=== PATIENT | female | born 1950 | race Caucasian/White ===

== ENCOUNTER 2019-12-10 10:36 | Emergency (ER) | payer OTHER, MEDICAID ==
[2019-12-10 10:49] VITALS: TEMP 98.1
--- NOTE | 2019-12-10 11:45 | RAD ---
EXAM DESCRIPTION: Scapula,Right CLINICAL HISTORY: fall with pain COMPARISON: None. TECHNIQUE: 2 views right FINDINGS: A comminuted fracture of the surgical neck of the left humerus is observed. No dislocation is seen. Some fracturing involving the greater tuberosity is also observed. There is slight lateral angulation of the distal fracture fragment. No scapular injury is detected. IMPRESSION: A comminuted fracture of the surgical neck of the right humerus is observed. Electronically signed by: Edil Gutiérrez MD 12/10/2019 11:43 AM [facility]
--- NOTE | 2019-12-10 11:46 | RAD ---
EXAM DESCRIPTION: Shoulder,Right 2 or More Views CLINICAL HISTORY: fall with pain COMPARISON: None. TECHNIQUE: 2 views right FINDINGS: A comminuted fracture of the surgical neck of the right humerus is observed. There is some comminution involving the greater tuberosity. There is lateral angulation of the distal fracture fragment. No evidence of dislocation is seen. 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 IMPRESSION: Comminuted fracture of the surgical neck of the right humerus. Electronically signed by: Edil Gutiérrez MD 12/10/2019 11:44 AM [facility]
[2019-12-10] MEDS ORDERED: traMADol HCL 50 MG TAB PO ONE (11:59)
[2019-12-10] MEDS ORDERED: IBUPROFEN 200 MG TAB PO ONE (11:59)
--- NOTE | 2019-12-10 11:59 | ED.PDOC ---
History of Present Illness - General Chief Complaint: Upper Extremity Injury Stated Complaint: fell on ice and hurt right shoulder Time Seen by Provider: 12/10/19 11:09 Source: patient Exam Limitations: no limitations - History of Present Illness Initial Comments: The patient is a 69-year-old female presented to emergency room after having slipped and fallen on the ice this morning. She has pain in her right shoulder diffusely. No obvious deformity. She appears to be neurovascularly intact. There is some pain over the lateral scapula but no laceration no obvious deformi ty. Passive range of motion appears to be preserved but there is pain. No pain at the elbow hand or wrist. No pain of the spine. She is pleasant and cooperative. No other obvious injuries from the fall. Timing/Duration: 1-3 hours Severity: moderate Improving Factors: immobilization Worsening Factors: movement Associated Symptoms: denies symptoms Allergies/Adverse Reactions: Allergies NO KNOWN ALLERGY Allergy (Verified 12/10/19 10:49) Home Medications: Ambulatory Orders Aspirin [Moiz Low Dose] 81 mg PO 12/10/19 Tramadol HCl 50 mg PO Q8HR PRN #20 tab 12/10/19 Review of Systems - Review of Systems Constitutional: States: no symptoms reported EENTM: States: no symptoms reported Respiratory: States: no symptoms reported Cardiology: States: no symptoms reported Gastrointestinal/Abdominal: States: no symptoms reported Genitourinary: States: no symptoms reported Musculoskeletal: States: see HPI Skin: States: no symptoms reported Neurological: States: no symptoms reported Endocrine: States: no symptoms reported All other Systems: No Change from Baseline Past Medical History (General) - Patient Medical History Hx Congestive Heart Failure: No Hx Hypertension: Yes Hx Diabetes: Yes Surgical History: no surgical history - Vaccination History Hx Tetanus, Diphtheria Vaccination: No Hx Influenza Vaccination: No Hx Pneumococcal Vaccination: No - Social History Hx Tobacco Use: No Hx Alcohol Use: No - Activities of Daily Living Hospice Agency (if applicable):: None - Female History Patient is a Female of Child Bearing Age (10 -59 yrs old): No - Triage Comment ED Triage Comment: pt voices slipping and falling on ice on her way out to trash this morning Family Medical History - Family History Mother Family History: Unknown Physical Exam - Physical Exam General Appearance: Alert, No apparent distress Eye Exam: bilateral normal Ears, Nose, Throat: hearing grossly normal, normal pharynx Neck: full range of motion, supple Respiratory: lungs clear, normal breath sounds, no respiratory distress, no accessory muscle use Cardiovascular/Chest: normal peripheral pulses, no edema, other - Regular rate Peripheral Pulses: radial,right: 2+, radial,left: 2+ Rectal Exam: deferred Back Exam: no CVA tenderness, no vertebral tenderness Extremity: no pedal edema, normal capillary refill, other - See history of present illness 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 Skin Exam: normal color Comments: Vital Signs - 8 hr 12/10/19 12/10/19 12/10/19 10:44 10:52 11:36 Temperature 98.1 F 98.1 F Pulse Rate [ 87 79 68 brachial] Respiratory 16 16 16 Rate Blood Pressure 205/103 206/87 [Left Arm] O2 Sat by Pulse 97 98 Oximetry Progress - Progress Progress: 12/10/19 12:00 The patient is a 69-year-old female presenting to the emergency room secondary to having had a fall earlier in the day on the ice. The patient appears to have sustained a comminuted fracture of the surgical neck of the right humerus. No evidence of any scapular fracture and no dislocation. The patient is going to be placed in a shoulder immobilizer. She needs to follow-up with orthopedics in 1 to 2 weeks. She will be written for tramadol for pain control. She can additionally use Motrin or Aleve if needed. No other injuries obvious at this point. ER warnings are given. Keep routine follow-up with primary care doctor otherwise. filipe liao [id number] - Results/Orders Results/Orders: X-ray shows a comminuted fracture of the surgical neck of the right humerus. No evidence of scapular fracture. Departure - Departure Clinical Impression: Humerus fracture Qualifiers: Encounter type: initial encounter Humerus Location: surgical neck Fracture type: closed Fracture morphology: unspecified fracture morphology Fracture alignment: nondisplaced Laterality: right Qualified Code(s): S42.214A - Unspecified nondisplaced fracture of surgical neck of right humerus, initial encounter for closed fracture Disposition: Discharge to Home or Self Care Condition: Good Departure Forms: ED Discharge - Pt. Copy, Patient Portal Self Enrollment Instructions: Shoulder Fracture (DC) Diet: regular diet Activity: no pushing/pulling with affected limb Prescriptions: Tramadol HCl 50 mg PO Q8HR PRN #20 tab PRN Reason: Moderate Pain Home Medications: Ambulatory Orders Aspirin [Moiz Low Dose] 81 mg PO 12/10/19 Tramadol HCl 50 mg PO Q8HR PRN #20 tab 12/10/19 Additional Instructions: The patient is a 69-year-old female presenting to the emergency room secondary to having had a fall earlier in the day on the ice. The patient appears to have sustained a comminuted fracture of the surgical neck of the right humerus. No evidence of any scapular fracture and no dislocation. The patient is going to be placed in a shoulder immobilizer. She needs to follow-up with orthopedics in 1 to 2 weeks. She will be written for tramadol for pain control. She can additionally use Motrin or Aleve if needed. No other injuries obvious at this point. ER warnings are given. Keep routine follow-up with primary care doctor otherwise.
[2019-12-10 12:30] VITALS: BP 194/82; O2SAT 96
== END 2019-12-10 12:25 | disposition home or self-care (01) ==
LOC: ER 10:36
DX: S42.214A Unspecified nondisplaced fracture of surgical neck of right humerus, initial encounter for closed fracture (principal); I10 Essential (primary) hypertension; E11.9 Type 2 diabetes mellitus without complications; W00.0XXA Fall on same level due to ice and snow, initial encounter; Z79.82 Long term (current) use of aspirin; Y93.89 Activity, other specified; Y92.9 Unspecified place or not applicable